=== PATIENT | female | born 1980 | race Caucasian/White ===

== ENCOUNTER 2023-07-06 22:51 | Outpatient (CLI) | payer OTHER ==
--- NOTE | 2023-07-07 00:16 | Ultrasound Report ---
PROCEDURE: OB First Trimester w/TV INDICATIONS: THREATENED SPONTANEOUS OUTSIDE/PRIOR DATING DATA: Last menstrual period (LMP): . LMP-based estimated date of delivery (AGNES): . First dating scan (date and location): . Estimated date of delivery (AGNES) from first dating scan: . TECHNIQUE: Real-time scanning was performed of the fetus and maternal pelvic organs, with image documentation. Endovaginal scanning was also performed to better visualize the fetus and maternal ovaries. COMPARISON: None. FINDINGS: Intrauterine gestational sac present. Embryo: 1.2 cm, 7 weeks, 3 days by crown-rump length Heart rate: 164 bpm. Other: There is a circumferential perigestational bleed around the gestational sac. A 1.5 x 2.0 cm pe rigestational bleed is also present at the internal os. Measurement variability in dating: +/- 4 weeks by LMP, +/- 7 days by mean sac diameter (use before 6 weeks gestation if crown-rump length not able to be measured), +/- 5 days by crown-rump length (6-12 weeks gestation). Maternal organs: Ovaries appear within normal limits. IMPRESSION: 1. Single live intrauterine gestation with a gestational age of 7 weeks, 3 days by crown-rump length. 2. Large perigestational bleed in a circumferential distribution around the gestational sac. 3. Perigestational bleed at the internal os as above. Reviewed by: Aurelia Luis MD on 07/07/2023 12:15 AM PDT Approved by: Aurelia Luis MD on 07/07/2023 12:15 AM PDT Station ID: [id number]
== END 2023-07-06 22:52 | disposition home or self-care (01) ==
LOC: DI 22:51
PROVIDERS: ATTEND Obstetrics & Gynecology
DX: O20.8 Other hemorrhage in early pregnancy (principal); Z3A.01 Less than 8 weeks gestation of pregnancy

== ENCOUNTER 2023-07-09 11:16 | Outpatient (CLI) | payer OTHER ==
[2023-07-09 19:40] LABS: BASOPHILS % (AUTO) 0.4 %; EOSINOPHILS # (AUTO) 0.3 10^3/uL (0.0-0.7); EOSINOPHILS % (AUTO) 3.1 %; HCT - HEMATOCRIT 41.1 % (37.0-47.0); HGB - HEMOGLOBIN 13.2 g/dL (12.0-16.0); LYMPHOCYTES # (AUTO) 2.2 10^3/uL (1.5-3.5); MEAN CORPUSCULAR HGB CONC 32.1 g/dL (32.0-36.0); MEAN CORPUSCULAR VOLUME 90.3 fL (81.0-99.0); MEAN PLATELET VOLUME 9.7 fL (7.9-10.8); MONOCYTES # (AUTO) 0.6 10^3/uL (0.0-1.0); MONOCYTES % (AUTO) 6.6 %; NEUTROPHILS # (AUTO) 6.4 10^3/uL (1.5-6.6); NEUTROPHILS % (AUTO) 66.7 %; PLT - PLATELET COUNT 370 10^3/uL (130-450); RED BLOOD COUNT 4.55 10^6/uL (4.20-5.40); RED CELL DISTRIBUTION WIDTH 12.6 % (12.0-15.0); WHITE BLOOD COUNT 9.6 x10^3/uL (4.8-10.8)
[2023-07-09 19:47] LABS: BILIRUBIN,URINE NEGATIVE (NEGATIVE); GLUCOSE, URINE (UA) NEGATIVE (NEGATIVE); KETONES,URINE (UA) NEGATIVE (NEGATIVE); LEUKOCYTE ESTERASE, URINE NEGATIVE (NEGATIVE); NITRITE,URINE NEGATIVE (NEGATIVE); OCCULT BLOOD,URINE LARGE (NEGATIVE); PH,URINE 5.5 PH (5.0-7.5); PROTEIN,URINE TRACE mg/dL (NEGATIVE); UROBILINOGEN,URINE 0.2 (NORMAL) E.U./dL (NORMAL)
[2023-07-09 19:49] LABS: CLARITY,URINE CLOUDY (CLEAR)
[2023-07-09 19:54] LABS: RBC,URINE 0-5 /HPF (0-5); WBC,URINE 0-3 /HPF (0-5)
[2023-07-09 19:55] LABS: AMORPHOUS SEDIMENT,UR Marked /LPF; BACTERIA,URINE None Seen /HPF (None Seen); SQUAMOUS EPITHELIAL CELL,UR FEW Squamous (<= Few)
[2023-07-09 21:29] LABS: BACTERIAL VAGINOSIS DNA POSITIVE (NEGATIVE); CANDIDA GLABRATA DNA NEGATIVE (NEGATIVE); CANDIDA GROUP DNA NEGATIVE (NEGATIVE); CANDIDA KRUSEI DNA NEGATIVE (NEGATIVE); TRICHOMONAS VAGINALIS DNA NEGATIVE (NEGATIVE)
[2023-07-09 22:28] LABS: CHLAMYDIA TRACHOMATIS DNA NEGATIVE (NEGATIVE); NEISSERIA GONORRHOEAE DNA NEGATIVE (NEGATIVE); TRICHOMONAS VAGINALIS DNA NEGATIVE (NEGATIVE)
[2023-07-11 07:08] LABS: HBsAG SCREEN Negative (Negative)
[2023-07-11 09:10] LABS: HCV AB Non Reactive (Non Reactive); HIV SCREEN 4TH GENERATION Non Reactive (Non Reactive)
[2023-07-11 13:10] LABS: VARICELLA-ZOSTER AB IGG 367 index (Immune >165)
[2023-07-12 05:12] LABS: RPR Non Reactive (Non Reactive)
== END 2023-07-09 11:17 | disposition home or self-care (01) ==
LOC: LAB.N 11:16
PROVIDERS: ATTEND Obstetrics & Gynecology
DX: O09.91 Supervision of high risk pregnancy, unspecified, first trimester (principal); Z36.89 Encounter for other specified antenatal screening; O26.851 Spotting complicating pregnancy, first trimester
CPT/HCPCS: 36415; 81001; 81003; 81514; 85025; 86592; 86762; 86787; 86803; 86850; 86900; 86901; 87086; 87340; 87389; 87491; 87591; 87661

== ENCOUNTER 2023-07-13 11:26 | Emergency (ER) | payer OTHER ==
[2023-07-13 11:46] VITALS: O2SAT 98
[2023-07-13] MEDS ORDERED: SODIUM CHLORIDE 0.9% 1,000 ML IV STA ×2 (15:25→16:52)
[2023-07-13 15:46] LABS: BASOPHILS % (AUTO) 0.3 %; EOSINOPHILS # (AUTO) 0.2 10^3/uL (0.0-0.7); EOSINOPHILS % (AUTO) 1.9 %; HCT - HEMATOCRIT 40.5 % (37.0-47.0); HGB - HEMOGLOBIN 13.4 g/dL (12.0-16.0); LYMPHOCYTES # (AUTO) 2.2 10^3/uL (1.5-3.5); LYMPHOCYTES % (AUTO) 20.6 %; MEAN CORPUSCULAR HEMOGLOBIN 29.3 pg (27.0-31.0); MEAN CORPUSCULAR HGB CONC 33.1 g/dL (32.0-36.0); MEAN CORPUSCULAR VOLUME 88.6 fL (81.0-99.0); MEAN PLATELET VOLUME 8.4 fL (7.9-10.8); MONOCYTES # (AUTO) 0.6 10^3/uL (0.0-1.0); MONOCYTES % (AUTO) 5.6 %; NEUTROPHILS # (AUTO) 7.6 10^3/uL (1.5-6.6); NEUTROPHILS % (AUTO) 71.3 %; PLT - PLATELET COUNT 344 10^3/uL (130-450); RED BLOOD COUNT 4.57 10^6/uL (4.20-5.40); RED CELL DISTRIBUTION WIDTH 12.3 % (12.0-15.0); WHITE BLOOD COUNT 10.7 x10^3/uL (4.8-10.8)
[2023-07-13 16:03] LABS: ALBUMIN 3.9 g/dL (3.2-5.5); ALBUMIN/GLOBULIN RATIO 1.3 (1.0-2.2); BILIRUBIN,TOTAL 0.5 mg/dL (0.2-1.0); CALCIUM 9.4 mg/dL (8.5-10.3); CREATININE 0.8 mg/dL (0.6-1.3); POTASSIUM 4.1 mmol/L (3.5-4.5)
[2023-07-13] MEDS ORDERED: ONDANSETRON 4 MG/2 ML VIAL IVP STA ×2 (16:51→19:34)
--- NOTE | 2023-07-13 16:55 | ED Physician Documentation ---
PD HPI NVD - Stated complaint Stated Complaint: N/V, FEVER, CONSTIPATION - Chief complaint Chief Complaint: Abd Pain - History obtained from History obtained from: Patient - Additonal information Additional information: Patient comes to the emergency department for chief complaint of nausea vomiting for the last 2 weeks. She is about 8 weeks with an IVF and has been on estrogen and progesterone at home. She is a patient of Dr. Morel. She states that she really has not been able to hold much down during that time although she did a little better a few days ago. Mostly though anything she puts in her stomach anytime of the day comes up. She states she feels very dehydrated and was told by OB to come here for hydration. No other complaints at this time. No fevers or chills. No dysuria. She states she has had some vaginal bleeding throughout the entire course of her but that multiple ultrasounds have shown the IUP to still be viable. No uptake in blee ding in the last day or 2. PD PAST MEDICAL HISTORY - Present Medications Home Medications: Ambulatory Orders Medication Instructions Recorded Confirmed Ondansetron Odt [Zofran] 4 mg TL Q6H PRN #30 tablet 07/13/23 - Allergies Allergies/Adverse Reactions: Allergies Allergy/AdvReac Type Severity Reaction Status Date / Time latex AdvReac Rash Verified 07/13/23 11:40 PD ED PE NORMAL - Vitals Vital signs reviewed: Yes - General General: Alert and oriented X 3, No acute distress, Well developed/nourished - HEENT HEENT: Atraumatic, PERRL, EOMI, Moist mucous membranes - Neck Neck: Supple, no meningeal sign - Cardiac Cardiac: RRR, No murmur - Respiratory Respiratory: No respiratory distress, Clear bilaterally - Abdomen Abdomen: Soft, Non tender, Non distended - Derm Derm: Normal color, Warm and dry, No rash - Extremities Extremities: No deformity, No edema - Neuro Neuro: Alert and oriented X 3 - Psych Psych: Normal mood, Normal affect Results - Vitals Vitals: Oxygen O2 Source Room air - Labs Labs: Laboratory Tests 07/13/23 07/13/23 15:42 15:42 WBC 10.7 RBC 4.57 Hgb 13.4 Hct 40.5 MCV 88.6 MCH 29.3 MCHC 33.1 RDW 12.3 Plt Count 344 MPV 8.4 Neut # (Auto) 7.6 H Lymph # (Auto) 2.2 [place] # (Auto) 0.6 Eos # (Auto) 0.2 Baso # (Auto) 0.0 Absolute Nucleated RBC 0.00 Nucleated RBC % 0.0 Sodium 135 Potassium 4.1 Chloride 105 Carbon Dioxide 24 Anion Gap 6.0 BUN 13 Creatinine 0.8 Estimated GFR (MDRD) 78 L Glucose 100 Calcium 9.4 Total Bilirubin 0.5 AST 16 ALT 16 Alkaline Phosphatase 50 Total Protein 7.0 Albumin 3.9 Globulin 3.1 Albumin/Globulin Ratio 1.3 Lipase 78 PD Medical Decision Making - ED course Complexity details: reviewed results, re-evaluated patient, considered differential, d/w patient, d/w family ED course: The patient was treated with IV fluids, Zofran, and worked up with ER abdominal panel, urinalysis, and CBC. Her laboratory studies were unremarkable. She was treated with a total of 2 L of normal saline, as well as repeat dose of Zofran and a dose of Phenergan. Patient was finally found to be feeling better and was stable for discharge home. I have prescribed ODT Zofran for her for at home and we have discussed the need for close follow-up with Dr. Morel. We discussed the usual indications for return. Departure - Departure Disposition: 01 Home, Self Care Clinical Impression: Hyperemesis gravidarum Condition: Stable Instructions: ED Preg Morning Sickness Prescriptions: Ondansetron Odt [Zofran] 4 mg TL Q6H PRN #30 tablet PRN Reason: Nausea / Vomiting Comments: Your labs overall look very good. You have been treated with 2 bags of IV fluid as well as 3 doses of nausea medicine tonight. A prescription for nausea medicine has been electronically transmitted to the [facility] pharmacy in [place], your pharmacy of choice on record. You may pick this up in the morning. For now, please go home and try to get some rest and check in with your OB doctor in the morning for further direction. Forms: PCP List Discharge Date/Time: 07/13/23 22:42
[2023-07-13] MEDS ORDERED: PROMETHAZINE INJ 25 MG in SODIUM CHLORIDE 0.9% 50 ML IV STA (20:34)
[2023-07-13] MEDS ORDERED: PROMETHAZINE 25 MG/1 ML VIAL ONE (20:50)
[2023-07-14 10:58] VITALS: BP 100/61
== END 2023-07-13 22:42 | disposition home or self-care (01) ==
LOC: ED 11:26
DX: O21.1 Hyperemesis gravidarum with metabolic disturbance (principal); Z3A.08 8 weeks gestation of pregnancy
CPT/HCPCS: 36415; 80053; 83690; 85025; 96361; 96365; 96375; 96376; 99283; 99284; J7040

== ENCOUNTER 2023-11-17 10:44 | Outpatient (CLI) | payer OTHER ==
[2023-11-17 11:06] LABS: HCT - HEMATOCRIT 36.1 % (37.0-47.0); HGB - HEMOGLOBIN 11.7 g/dL (12.0-16.0); MEAN CORPUSCULAR HEMOGLOBIN 30.1 pg (27.0-31.0); MEAN CORPUSCULAR HGB CONC 32.4 g/dL (32.0-36.0); MEAN CORPUSCULAR VOLUME 92.8 fL (81.0-99.0); MEAN PLATELET VOLUME 8.5 fL (7.9-10.8); RED BLOOD COUNT 3.89 10^6/uL (4.20-5.40); RED CELL DISTRIBUTION WIDTH 13.1 % (12.0-15.0); WHITE BLOOD COUNT 9.4 x10^3/uL (4.8-10.8)
[2023-11-17 11:20] LABS: ALBUMIN 3.4 g/dL (3.2-5.5); ALBUMIN/GLOBULIN RATIO 1.1 (1.0-2.2); BILIRUBIN,TOTAL 0.4 mg/dL (0.2-1.0); CALCIUM 8.7 mg/dL (8.5-10.3); CREATININE 0.8 mg/dL (0.6-1.3); POTASSIUM 3.4 mmol/L (3.5-4.5); TOTAL PROTEIN 6.4 g/dL (6.4-8.9)
[2023-11-17 12:58] LABS: CREATININE,URINE 202.5 mg/dL; PROTEIN/CREATININE RATIO,URINE 0.2 (<=0.2)
== END 2023-11-17 10:45 | disposition home or self-care (01) ==
LOC: LAB 10:44
PROVIDERS: ATTEND Nurse Practitioner
DX: O09.212 Supervision of pregnancy with history of pre-term labor, second trimester (principal); O22.42 Hemorrhoids in pregnancy, second trimester; O99.891 Other specified diseases and conditions complicating pregnancy; R60.0 Localized edema; R10.11 Right upper quadrant pain; H53.9 Unspecified visual disturbance
CPT/HCPCS: 36415; 80053; 82570; 84156; 85027

== ENCOUNTER 2023-11-17 12:07 | Outpatient (CLI) | payer OTHER ==
[2023-11-17 12:26] VITALS: BP 109/68
--- NOTE | 2023-11-17 13:22 | PROVIDER PROGRESS NOTE ---
- HPI Chief Complaint: Headache Current : Vital Signs Temperature 98.4 F 11/17/23 12:22 Heart Rate 77 11/17/23 12:22 Respiratory Rate 16 11/17/23 12:22 Blood Pressure 109/68 11/17/23 12:22 Temperature 98.4 F 11/17/23 12:22 Heart Rate 77 11/17/23 12:22 Respiratory Rate 16 11/17/23 12:22 Blood Pressure 109/68 11/17/23 12:22 O2 Saturation If not protocol: Oxygen Flow, liters/minute - Plan Plan: Patient is a 43-year-old -3-1-3 at 26 weeks 4 days gestation presenting to triage for headache and spots in vision.. She has good movement, no leaking, no vaginal bleeding. Headache intermittently, and says she has a wave of light in her right vision. She says she feels strange, sort of like she did when she went into labor and would like a cervical exam. Physical Exam Constitutional: alert, no acute distress, well hydrated, well developed, well nourished, appropriate dress. Cardiovascular: Regular rate and rhythm. Respiratory: no respiratory distress. Abdomen: nondistended, nontender, no guarding. Psych: affect and mood appropriate, normal interaction, good eye contact. FHT:145 bpm baseline. Appropriate for age. [place]: Quiescent SVE: 0/0/-3 Labs: Normal AST/ALT, PLT, Urine protein to creatinine ratio Assessment and plan Headache: Low concern for preeclampsia BP normal. Can follow up as needed.
== END 2023-11-17 13:55 | disposition home or self-care (01) ==
LOC: WFO 12:07 → FBP 12:09 → WFO 13:55
PROVIDERS: ATTEND Obstetrics & Gynecology
DX: O99.891 Other specified diseases and conditions complicating pregnancy (principal); R51.9 Headache, unspecified; O09.212 Supervision of pregnancy with history of pre-term labor, second trimester; O22.42 Hemorrhoids in pregnancy, second trimester; R60.0 Localized edema; R10.11 Right upper quadrant pain; H53.9 Unspecified visual disturbance
CPT/HCPCS: 36415; 80053; 82570; 84156; 85027; 99215

== ENCOUNTER 2023-11-21 10:25 | Outpatient (CLI) | payer OTHER | END 2023-11-21 10:26 | disposition home or self-care (01) | LOC: LAB.N 10:25 | PROVIDERS: ATTEND Nurse Practitioner | DX: O09.212 Supervision of pregnancy with history of pre-term labor, second trimester (principal) | CPT/HCPCS: 36415; 82950 ==

== ENCOUNTER 2023-11-30 08:05 | Outpatient (CLI) | payer OTHER ==
[2023-11-30 08:36] LABS: GTT GLUCOSE,FASTING 89 mg/dL (74-109)
== END 2023-11-30 08:06 | disposition home or self-care (01) ==
LOC: LAB 08:05
PROVIDERS: ATTEND Nurse Practitioner
DX: O99.810 Abnormal glucose complicating pregnancy (principal)
CPT/HCPCS: 36415; 82951; 82952

== ENCOUNTER 2023-12-02 19:04 | Outpatient (CLI) | payer OTHER ==
--- NOTE | 2023-12-04 11:24 | Ultrasound Report ---
PROCEDURE: OB Transvaginal INDICATIONS: HIST OF PRE TERM LABOR OUTSIDE/PRIOR DATING DATA: Last menstrual period (LMP): Not applicable (IVF). First dating scan (date and location): 07/06/2023, [place]. Estimated date of delivery (AGNES) from first dating scan: February 16, 2024. The below data below was generated using the ultrasound AGNES of February 16, 2024 TECHNIQUE: Real-time scanning was performed of the fetus, with image documentation. Endovaginal scanning: No COMPARISON: None. FINDINGS: Technically challenging exam secondary to patient body habitus. A single living intrauterine gestation is present. Presentation: Not examined Placenta: Not examined Amniotic fluid index: Not examined heart rate: 136 beats per minutes. Maternal cervical canal: 2.3 cm long; normal length is 2.5 cm or more. Estimated gestational age from initial scan: 29 weeks and 1 day. IMPRESSION: Technically challenging exam secondary to patient body habitus. 1.Single living intrauterine gestation with heart rate of 136. Estimated gestational age is 29 weeks and 1 day. 2.Maternal cervical canal measuring up to 2.3 cm. Reviewed by: Tanner Arrington MD on 12/04/2023 11:23 AM PST Approved by: Tanner Arrington MD on 12/04/2023 11:23 AM PST Station ID: [id number]
== END 2023-12-02 19:05 | disposition home or self-care (01) ==
LOC: DI 19:04
PROVIDERS: ATTEND Nurse Practitioner
DX: O09.213 Supervision of pregnancy with history of pre-term labor, third trimester (principal); O09.893 Supervision of other high risk pregnancies, third trimester; Z3A.29 29 weeks gestation of pregnancy

== ENCOUNTER 2023-12-05 14:53 | Outpatient (CLI) | payer OTHER ==
[2023-12-05 15:45] VITALS: BP 133/69; O2SAT 97
--- NOTE | 2023-12-05 17:00 | PROVIDER PROGRESS NOTE ---
- HPI Chief Complaint: Leakage of vaginal fluid Current : Vital Signs Temperature 98.1 F 12/05/23 15:38 Heart Rate 68 12/05/23 15:38 Respiratory Rate 16 12/05/23 15:38 Blood Pressure 133/69 H 12/05/23 15:38 O2 Saturation 97 12/05/23 15:38 Temperature 98.1 F 12/05/23 15:52 Heart Rate 68 12/05/23 15:38 Respiratory Rate 16 12/05/23 15:38 Blood Pressure 133/69 H 12/05/23 15:38 O2 Saturation 97 12/05/23 15:38 If not protocol: Oxygen Flow, liters/minute - Procedures OB Procedure Performed: NST - Plan Plan: Patient is a 43-year-old -3-1-3 at 29 weeks 1 day gestation presenting to triage for vaginal pressure and discharge. No recent intercourse. She has good movement. Think she hewitt out earlier, wondered if it could be amniotic fluid. No vaginal bleeding. Intermittent contractions, says she will have several and an hour then nothing for several hours. She denies headache, right upper quadrant pain, changes in vision. Physical Exam Constitutional: alert, no acute distress, well hydrated, well developed, well nourished, appropriate dress. Cardiovascular: Regular rate and rhythm. Respiratory: no respiratory distress. Abdomen: nondistended, nontender, no guarding. Psych: affect and mood appropriate, normal interaction, good eye contact. SSE: Negative Valsalva, pooling, nitrazine. Visually closed cervix. Moderate amount of thick white discharge SVE: 0/0/-3. Cervix does feel soft FHT: 135 beats per baseline, moderate variability, accelerations present, no decelerations. Reactive NST [place]: Rare ROM plus: Negative FFN: Positive Assessment and plan 43-year-old -3-1-3 at 29 weeks 1 day gestation here with vaginal pressure. 1. Vaginosis -Vaginosis panel pending, but likely a yeast infection. Will follow-up by phone. -Discussed that sensitivity from something vaginal infection can irritate the cervix and cause sensation of cramping and cause false positives and fibronectin. While she is not changing or martina regularly, I believe she can be discharged home with low threshold for return. -Patient feels comfortable returning home. -I anticipate several triage visits over the next weeks with his low threshold and likelihood of her delivery 2. 29 weeks gestation -Follow-up next week in clinic 3. History of labor -Strong labor precautions. Likely to deliver in the next coming weeks. -We did discuss that a negative fibronectin is very reassuring for not having labor. Positive is less clear. She is not having any regular contractions, and given her history, was kept for over 2 hours and assessed for cervical change. Patient cervix remains unchanged. She is concerned as her cervix did decrease from over 3 to lower 2 cm in length. Reassured that this is still not exceptionally short, and given her history is not surprising. 4. Leaking fluid: Likely urinary leaking from . No sign of UTI. Does not appear to be ruptured.
[2023-12-05 17:38] LABS: RUPTURE OF MEMBRANES PLUS NEGATIVE (NEGATIVE)
[2023-12-05 18:17] LABS: BILIRUBIN,URINE NEGATIVE (NEGATIVE); GLUCOSE, URINE (UA) NEGATIVE (NEGATIVE); KETONES,URINE (UA) NEGATIVE (NEGATIVE); LEUKOCYTE ESTERASE, URINE NEGATIVE (NEGATIVE); NITRITE,URINE NEGATIVE (NEGATIVE); OCCULT BLOOD,URINE TRACE-INTA (NEGATIVE); PROTEIN,URINE TRACE mg/dL (NEGATIVE); UROBILINOGEN,URINE 0.2 (NORMAL) E.U./dL (NORMAL)
[2023-12-05 18:23] LABS: BACTERIA,URINE Few /HPF (None Seen); CLARITY,URINE SL. CLOUDY (CLEAR); MUCUS,URINE Moderate Strands; RBC,URINE 0-5 /HPF (0-5); SQUAMOUS EPITHELIAL CELL,UR MANY Squamous (<= Few); WBC,URINE 0-3 /HPF (0-5)
[2023-12-05 19:51] LABS: BACTERIAL VAGINOSIS DNA NEGATIVE (NEGATIVE); CANDIDA GLABRATA DNA NEGATIVE (NEGATIVE); CANDIDA GROUP DNA POSITIVE (NEGATIVE); CANDIDA KRUSEI DNA NEGATIVE (NEGATIVE); TRICHOMONAS VAGINALIS DNA NEGATIVE (NEGATIVE)
== END 2023-12-05 19:15 | disposition home or self-care (01) ==
LOC: WFO 14:53 → FBP 15:23 → WFO 19:15
PROVIDERS: ATTEND Obstetrics & Gynecology
DX: O99.891 Other specified diseases and conditions complicating pregnancy (principal); O23.593 Infection of other part of genital tract in pregnancy, third trimester; N89.8 Other specified noninflammatory disorders of vagina; R10.2 Pelvic and perineal pain; Z3A.29 29 weeks gestation of pregnancy; Z87.51 Personal history of pre-term labor
CPT/HCPCS: 81001; 81514; 82731; 84112; 87081; 87086; 87797; 99215

== ENCOUNTER 2023-12-14 08:00 | Outpatient (CLI) | payer OTHER ==
[2023-12-14 17:11] LABS: RUPTURE OF MEMBRANES PLUS NEGATIVE (NEGATIVE)
== END 2023-12-14 23:59 | disposition home or self-care (01) ==
LOC: LAB.WC 08:00
PROVIDERS: ATTEND Obstetrics & Gynecology
DX: N89.8 Other specified noninflammatory disorders of vagina (principal)
CPT/HCPCS: 84112

== ENCOUNTER 2023-12-20 11:27 | Outpatient (CLI) | payer OTHER ==
[2023-12-20 11:59] LABS: BILIRUBIN,URINE NEGATIVE (NEGATIVE); GLUCOSE, URINE (UA) NEGATIVE (NEGATIVE); KETONES,URINE (UA) NEGATIVE (NEGATIVE); LEUKOCYTE ESTERASE, URINE NEGATIVE (NEGATIVE); NITRITE,URINE NEGATIVE (NEGATIVE); OCCULT BLOOD,URINE SMALL (NEGATIVE); PROTEIN,URINE TRACE mg/dL (NEGATIVE); UROBILINOGEN,URINE 0.2 (NORMAL) E.U./dL (NORMAL)
[2023-12-20 12:12] LABS: BACTERIA,URINE Rare /HPF (None Seen); CLARITY,URINE CLEAR (CLEAR); RBC,URINE 0-5 /HPF (0-5); SQUAMOUS EPITHELIAL CELL,UR MOD Squamous (<= Few); WBC CLUMPS,URINE NONE SEEN; WBC,URINE 0-3 /HPF (0-5)
[2023-12-20 12:58] VITALS: BP 129/74
--- NOTE | 2023-12-20 13:45 | PROVIDER PROGRESS NOTE ---
- HPI Chief Complaint: Labor Current : Current EDU 02/19/24 Gestation 31 Weeks and 2 Days 5 Para 3 Vital Signs Temperature 98.2 F 12/20/23 11:49 Heart Rate 62 12/20/23 11:49 Respiratory Rate 16 12/20/23 11:49 Blood Pressure 129/74 12/20/23 11:49 Temperature 98.2 F 12/20/23 11:49 Heart Rate 62 12/20/23 11:49 Respiratory Rate 16 12/20/23 11:49 Blood Pressure 129/74 12/20/23 11:49 O2 Saturation If not protocol: Oxygen Flow, liters/minute - Procedures OB Procedure Performed: NST Diagnosis/Indication for NST: labor NST Procedure: NST Procedure Start Date 12/20/23 Start Time 11:41 Stop Time 13:01 Patient States Movement Yes Service Date of procedure: 12/20/23 (Read: 12/20/2023) - Plan Plan: Patient is a 43-year-old -0-1-3 at 31 weeks 2 days gestation presented today with contractions. She has been martina since last night, up to a frequency of every 10 minutes when she was typing with her partner. Due to her history of labor, she decided to come in to get checked. These do seem to have been getting better since arrival. Still having discharge, but no significant change. She has good movement. No vaginal bleeding. Physical Exam Constitutional: alert, no acute distress, well hydrated, well developed, well nourished, appropriate dress. Cardiovascular: Regular rate and rhythm. Respiratory: no respiratory distress. Abdomen: nondistended, nontender, no guarding. Psych: affect and mood appropriate, normal interaction, good eye contact. FHT: 135 bpm baseline, moderate variability, accelerations present, no decelerations. Reactive NST [place]: Quiescent SVE: 0/0/-3 False labor -Cervix exam showed no dilation. No change from previous checks. Encouraged [employer] visit, although declined repeat exam she is not martina and decided not to irritate cervix -Has follow-up appointment next week Yeast vaginitis -Vaginosis panel positive for yeast. Prescription sent to pharmacy.
[2023-12-20 14:48] LABS: BACTERIAL VAGINOSIS DNA NEGATIVE (NEGATIVE); CANDIDA GLABRATA DNA NEGATIVE (NEGATIVE); CANDIDA GROUP DNA POSITIVE (NEGATIVE); CANDIDA KRUSEI DNA NEGATIVE (NEGATIVE); TRICHOMONAS VAGINALIS DNA NEGATIVE (NEGATIVE)
== END 2023-12-20 13:01 | disposition home or self-care (01) ==
LOC: WFO 11:27 → FBP 11:30 → WFO 13:01
PROVIDERS: ATTEND Obstetrics & Gynecology
DX: O47.03 False labor before 37 completed weeks of gestation, third trimester (principal); O23.593 Infection of other part of genital tract in pregnancy, third trimester; Z3A.31 31 weeks gestation of pregnancy
CPT/HCPCS: 59025; 81001; 81514; 99213

== ENCOUNTER 2023-12-27 08:00 | Outpatient (CLI) | payer OTHER ==
[2023-12-27 23:57] LABS: BACTERIAL VAGINOSIS DNA NEGATIVE (NEGATIVE); CANDIDA GLABRATA DNA NEGATIVE (NEGATIVE); CANDIDA GROUP DNA POSITIVE (NEGATIVE); CANDIDA KRUSEI DNA NEGATIVE (NEGATIVE); TRICHOMONAS VAGINALIS DNA NEGATIVE (NEGATIVE)
== END 2023-12-27 23:59 | disposition home or self-care (01) ==
LOC: LAB.WC 08:00
PROVIDERS: ATTEND Obstetrics & Gynecology
DX: N89.8 Other specified noninflammatory disorders of vagina (principal)
CPT/HCPCS: 81514

== ENCOUNTER 2023-12-30 17:28 | Outpatient (CLI) | payer OTHER ==
--- NOTE | 2023-12-31 13:15 | Ultrasound Report ---
PROCEDURE: OB Transvaginal INDICATIONS: HIST OF PRE TERM LABOR OUTSIDE/PRIOR DATING DATA: Last menstrual period (LMP): Not applicable. LMP-based estimated date of delivery (AGNES): Not applicable. First dating scan (date and location): 07/06/2023[place]. Estimated date of delivery (AGNES) from first dating scan: 02/16/2024. TECHNIQUE: Real-time scanning was performed of the fetus, with image documentation. Endovaginal scanning: Performed COMPARISON: Transvaginal ultrasound dated 12/16/2023. FINDINGS: A single living intrauterine gestation is present. Presentation: Vertex Placenta: Not examined Amniotic fluid index: Not examined. heart rate: 132 beats per minutes. Maternal cervical canal: 1.6-1.8 cm long; normal length is 2.5 cm or more. IMPRESSION: 1. The cervix measures approximately 1.6-1.8 cm in length. This may be slightly decreased in length w hen compared with the prior study dated 12/16/2023 where the measurements ranged from 1.5-2.0 cm in [facility]. Reviewed by: Aurelia Luis MD on 12/31/2023 1:14 PM PST Approved by: Aurelia Luis MD on 12/31/2023 1:14 PM PST Station ID: [id number]
== END 2023-12-30 17:29 | disposition home or self-care (01) ==
LOC: DI 17:28
PROVIDERS: ATTEND Nurse Practitioner
DX: O09.212 Supervision of pregnancy with history of pre-term labor, second trimester (principal); O09.812 Supervision of pregnancy resulting from assisted reproductive technology, second trimester; O09.892 Supervision of other high risk pregnancies, second trimester; Z3A.00 Weeks of gestation of pregnancy not specified

== ENCOUNTER 2024-01-06 06:27 | Outpatient (CLI) | payer OTHER ==
--- NOTE | 2024-01-06 06:51 | HISTORY & PHYSICAL EXAMINATION ---
Admit History - Visit Reason Visit Reason: Membranes rupture - : 5 Parity: 3 Premature: 3 : 1 Risk/History: positive: Premature rupture membrane Complications This : positive: Other (Short Cervix) Smoking Status: Never smoker - Mother's Labs Mother's Blood Type: positive: A Mother's RH: positive: Positive GBS: positive: Group B Step Negative Rubella Status: positive: Immune - Other Maternal History Other Maternal History: HPI: Patient is a 43-year-old -0-1-3 at 33 weeks 5 days gestation dated by embryo transfer here for rupture of membranes. She has good movement. She felt her water break around 2 hours prior to arrival and made her way here. Does have occasional contractions and is uncomfortable although not regular. No JARA/BV or RUQP. No vaginal bleeding. Denies nausea and vomiting. Denies urinary urgency or dysuria. Course Record Embryo transfer date: 06/03/2023, 1st one, donor egg 22 yo AGNES: 02/19/2024 by embryo transfer date Initial US Date 07/06/2023, US Age 7 weeks 3 days, AGNES by ultrasound: 02/19/2024 Final AGNES: 02/19/2024 by embryo transfer date consistent with 7-week ultrasound Problems: History of : Multiple pregnancies with early contractions and dilation, going into labor at 20 weeks, but stayed eventually until SROM at 30 weeks Other deliveries at 27 and 33 weeks. Cervix appears 3.5 cm. Sounds like labor rather than cervical incompetence. First baby for FOB. 5 years infertility then IVF x 1. Following with M. -Cervical exam every visit. Stress incontinence: Previously evaluated by urogynecology and pelvic floor physical therapy. Will consider pelvic floor physical therapy after delivery and surgery when done childbearing. Severe nausea - Much improved, but still nauseated. No vomiting. metoclopramide seems to work best. Advanced maternal age IVF : 22-year-old donor egg. Negative genetic testing. Prepregnancy weight: 171 Prepregnancy BMI: 30.5 Blood type: A+ [place]hes[place] (D) type: pos Antibody screen: neg Initial H/H: 13.2/41.1. Plt: 370 Rubella: imm Varicella: Imm HBsAg: Neg Hep C: NR RPR/AB-EIA: NR HIV: neg PAP: 11/2022 Normal per pt LEEP x2 Gonorrhea/Chlamydia: neg HSV Screen: denies self and partner Genetic testing: per pt. NIPT at [facility] Negative AFP-Neg COVID: vax x2 Influenza: 09/21 Second Trimester Anatomy Scan:Normal anatomy. Placenta: Posterior with tail 7mm from OS Cord: 3VC KARLY: normal EFW:411g 90th%ile 50 gm OGCT:178 100 g OGCT: 89/175/121/115 Tdap:11/30/2023 Breast Pump Rx:11/17/2023 Third Trimester 3rd trimester 11.7/36%/277 GBS: negative 12/05/23. Delivery Planning: Expectant management. Discussed liklihood of labor. Contraception:IVF PMH labor x 3 Secondary infertility Endometriosis PSH LEEP: 2003, 2005 Rhinoplasty [place] teeth extraction Bilateral salpingectomy OB History -0-1-3 1. 09/04/2000, 33 weeks, 2. 05/03/2021: 8 weeks, spontaneous 3. 02/15/2024, 27 weeks, 4. 06/22/2011, 30 weeks, 5. Current gestation, short cervix, SH Denies tobacco, alcohol, drugs Family History Father: Heart disease Paternal grandmother: Diabetes, dementia Allergies Latex Avagard Medications Promethazine 12.5 mg risks are as needed Metoclopramide 5 mg every 6 hours as needed Colace 100 mg twice daily Famotidine 20 mg twice daily Physical exam: General: Alert, oriented, no acute distress Head: Normal cephalic atraumatic Eyes: PERRLA, extraocular motions intact. Respiratory: Normal rate of respiration. No accessory muscle use, normal respiratory effort. Cardiovascular: Regular rate and rhythm Abdomen: Gravid, nontender, nondistended Extremities: Normal range of motion Neuro: Oriented x3. Normal movements Psych: Appropriate mood and affect. Normal judgment and insight SVE: /-3 FHT: 140 bpm baseline, moderate variability, accelerations present, no decelerations. Category 1 [place]: Irregular SSE: Positive pooling, Valsalva. Moderate amount of bloody show. No active bleeding. Negative ferning. US: Cephalic Labs: ROM plus rejected due to much blood Plan 43-year-old -0-1-3 at 33 weeks 5 days gestation with rupture of membranes rupture of membranes -Infrequent contractions, although definite cervical change from my exam on Tuesday -GBS collected and negative on 12/05/2023, repeat collected today. -Appears grossly ruptured, ROM plus rejected due to blood. -Ampicillin 2 g at 0820 plan for every 6 hours -Azithromycin 250 mg p.o. every 6 hours -UA, vaginosis/vaginitis panel pending. -Transfer to [facility] accepted. Plan to go by air, but currently weather delay. Will check in one hour. If still unavailable, will transfer by ground, but will need additional nurse to travel with patient. Will try to arrange in the interim. 33 weeks gestation -Betamethasone 12 mg IM x 1 at 0719 History of labor -Known short cervix. Not a candidate for cerclage as she had a long cervix in second trimester. GBS negative -Last collected 12/05/2023, repeat collected today. Yeast vaginitis -Has been treated throughout . - NST Procedure NST Procedure Start Time 11:41 Stop Time 13:01 Meds/Allgy - Home Medications Home Medications: Ambulatory Orders Medication Instructions Recorded Confirmed Clotrimazole 1% Cream [Lotrimin 1% 01/06/24 Cream] Docusate Sodium 100Mg Capsule 100 mg PO BID 01/06/24 01/06/24 [Colace 100Mg Capsule] Famotidine [Acid-Pep] 20 mg PO 01/06/24 Metoclopramide [Reglan] 10 mg PO ACHS 01/06/24 01/06/24 - Allergies Allergies/Adverse Reactions: Allergies Allergy/AdvReac Type Severity Reaction Status Date / Time latex AdvReac Rash Verified 07/13/23 11:40 Plan for Labor - Plan For Labor I expect patient to be DC'd or transferred within 96 hours.: Yes
[2024-01-06] MEDS: ERYTHROMYCIN BASE DR 250 MG TABLET PO SCH (07:15)
[2024-01-06] MEDS: BETAMETHASONE 30 MG/5 ML VIAL IM ONE (07:19)
[2024-01-06] MEDS: AMPICILLIN 2 GM in SODIUM CHLORIDE 0.9% MINIBAG 100 ML IV SCH (07:20)
[2024-01-06] MEDS: LACTATED RINGERS 1,000 ML IV SCH (07:20)
[2024-01-06 07:47] LABS: BASOPHILS % (AUTO) 0.2 %; EOSINOPHILS # (AUTO) 0.1 10^3/uL (0.0-0.7); HCT - HEMATOCRIT 37.6 % (37.0-47.0); HGB - HEMOGLOBIN 12.3 g/dL (12.0-16.0); LYMPHOCYTES # (AUTO) 2.3 10^3/uL (1.5-3.5); LYMPHOCYTES % (AUTO) 16.9 %; MEAN CORPUSCULAR HEMOGLOBIN 29.9 pg (27.0-31.0); MEAN CORPUSCULAR HGB CONC 32.7 g/dL (32.0-36.0); MEAN CORPUSCULAR VOLUME 91.3 fL (81.0-99.0); MEAN PLATELET VOLUME 9.6 fL (7.9-10.8); MONOCYTES # (AUTO) 1.1 10^3/uL (0.0-1.0); MONOCYTES % (AUTO) 7.7 %; NEUTROPHILS # (AUTO) 10.1 10^3/uL (1.5-6.6); NEUTROPHILS % (AUTO) 73.9 %; PLT - PLATELET COUNT 267 10^3/uL (130-450); RED BLOOD COUNT 4.12 10^6/uL (4.20-5.40); WHITE BLOOD COUNT 13.6 x10^3/uL (4.8-10.8)
[2024-01-06 08:00] LABS: ALBUMIN/GLOBULIN RATIO 0.9 (1.0-2.2); BILIRUBIN,TOTAL 0.3 mg/dL (0.2-1.0); CALCIUM 8.6 mg/dL (8.5-10.3); CREATININE 0.9 mg/dL (0.6-1.3); TOTAL PROTEIN 6.3 g/dL (6.4-8.9)
[2024-01-06 08:51] VITALS: BP 145/73
[2024-01-06 10:15] LABS: CHLAMYDIA TRACHOMATIS DNA NEGATIVE (NEGATIVE); NEISSERIA GONORRHOEAE DNA NEGATIVE (NEGATIVE); TRICHOMONAS VAGINALIS DNA NEGATIVE (NEGATIVE)
== END 2024-01-06 09:13 | disposition short-term general hospital (02) ==
LOC: WFO 06:27 → FBP 06:29 → WFO 09:13
PROVIDERS: ATTEND Obstetrics & Gynecology
DX: O42.013 Preterm premature rupture of membranes, onset of labor within 24 hours of rupture, third trimester (principal); Z3A.33 33 weeks gestation of pregnancy; Z87.51 Personal history of pre-term labor; O99.891 Other specified diseases and conditions complicating pregnancy; N39.3 Stress incontinence (female) (male); R11.0 Nausea; O09.523 Supervision of elderly multigravida, third trimester; O23.593 Infection of other part of genital tract in pregnancy, third trimester
CPT/HCPCS: 59025; 80053; 85025; 86850; 86900; 86901; 87491; 87591; 87661; 87797; 96365; 96372; 99215; A9270; J7120; 84112

== ENCOUNTER 2024-01-06 09:16 | Outpatient (CLI) | payer OTHER | END 2024-01-06 09:17 | disposition short-term general hospital (02) | LOC: EMS 09:16 | PROVIDERS: ATTEND Obstetrics & Gynecology | DX: O42.913 Preterm premature rupture of membranes, unspecified as to length of time between rupture and onset of labor, third trimester (principal) | CPT/HCPCS: A0425; A0427 ==

== ENCOUNTER 2024-05-18 09:36 | Outpatient (CLI) | payer OTHER ==
--- NOTE | 2024-05-18 12:40 | MRI Report ---
PROCEDURE: Lumbar Spine WO INDICATIONS: LOW BACK PAIN TECHNIQUE: Noncontrast sagittal T1 spin echo and T2 fast echo, sagittal STIR, axial T1 and T2 fast spin echo thr ough the lumbar spine. In cases with scoliosis, additional coronal T2 fast spin echo may be performe d. COMPARISON: None. FINDINGS: Image quality: Excellent. Alignment and Curvature: There is normal bony alignment. Bone Marrow: Marrow is of normal overall signal. No acute vertebral body compression fractures. Spinal Cord: Conus medullaris terminates at the L1 level. Visualized cord demonstrates normal signa l and size. Paraspinous Soft Tissues: No paravertebral masses. T12-L1: Normal in appearance. L1-L2: Normal in appearance. L2-L3: Normal in appearance. L3-L4: Mild diffuse disc bulge and bilateral facet arthrosis with hypertrophy of ligamentum flavum is seen. No significant central canal stenosis. Mild right-sided neural foraminal narrowing is seen. L4-L5: There is loss of disc signal. Broad-based disc bulge and bilateral facet arthrosis with mild to moderate bilateral neural foraminal narrowing. No significant central canal stenosis. L5-S1: Loss of disc signal. Diffuse disc bulge and bilateral facet arthrosis is seen. No significan t canal stenosis or neural foraminal narrowing. IMPRESSION: 1. No marrow edema. No compression fracture or spondylolisthesis. No abnormal signal is seen within t he conus. 2. Mild degenerative disc disease at L3-4 through L5-S1 levels causing [id number] bilateral jose ral foraminal narrowing as described above. No significant central canal stenosis. Reviewed by: Gwyn Dove MD on 05/18/2024 12:39 PM PDT Approved by: Gwyn Dove MD on 05/18/2024 12:39 PM PDT Station ID: [id number]
== END 2024-05-18 09:37 | disposition home or self-care (01) ==
LOC: DI 09:36
PROVIDERS: ATTEND Nurse Practitioner Family
DX: M51.36 Other intervertebral disc degeneration, lumbar region (principal); M51.37 Other intervertebral disc degeneration, lumbosacral region; M48.061 Spinal stenosis, lumbar region without neurogenic claudication; M47.816 Spondylosis without myelopathy or radiculopathy, lumbar region; M47.817 Spondylosis without myelopathy or radiculopathy, lumbosacral region; G89.29 Other chronic pain